=== PATIENT | male | born 1950 | race Caucasian/White ===

== ENCOUNTER 2021-08-16 12:56 | Day surgery (SDC) | payer MEDICARE ==
[~2021-08-16] VITALS: Ht 177.8 cm; Wt 87.0 kg
[2021-08-16] VITALS (10 sets, daily range): BP systolic 94–126; BP diastolic 59–79; PULSE 55–80; TEMP 98.4
[2021-08-16 13:36] LABS: HEMOGLOBIN 12.7 g/dl (13.5-18.0); MEAN CELL VOLUME 92 fl (80.0-100.0); MEAN CORPUSCULAR HEMOGLOBIN 32 pg (27-31); MEAN CORPUSCULAR HGB CONC 34 g/dl (33.0-37.0); MEAN PLATELET VOLUME 10.5 fl (7.4-10.4); PLATELET COUNT 186 K/mm3 (130-400); RED BLOOD COUNT 4.01 M/mm3 (4.20-5.60); REDCELL DISTRIBUTION WIDTH-CV 13.1 % (11.5-14.5)
[2021-08-16 13:49] LABS: INR 1.2 (0.8-3.0); PROTHROMBIN TIME 13.2 SECONDS (9.7-12.8)
[2021-08-16 13:50] LABS: CALCIUM 9.3 mg/dL (8.4-10.2); CREATININE, serum 1.33 mg/dL (0.72-1.25)
[2021-08-16 13:52] LABS: PARTIAL THROMBOPLASTIN TIME 35.9 SECONDS (26.0-37.0)
[2021-08-16] MEDS ORDERED: PLAVIX 75MG TAB75 MG PO (14:15)
[2021-08-16] MEDS ORDERED: ACTOS 15MG TAB15 MG PO (14:15)
[2021-08-16] MEDS ORDERED: ASPIRIN E.C. 8181 MG PO (14:15)
[2021-08-16] MEDS ORDERED: GLUCOPHAGE XR750 MG PO (14:16)
[2021-08-16] MEDS ORDERED: LOTENSIN20 MG PO (14:16)
[2021-08-16] MEDS ORDERED: XULTOPHY 100 UNI3 ML SQ (14:17)
[2021-08-16] MEDS ORDERED: LIPITOR 40MG TA40 MG PO (14:17)
--- NOTE | 2021-08-16 15:09 | NUR ---
See merge for all medication, assessment, intervention, vital sign times. Moderate sedation assessment completed after reviewing patient in express.
--- NOTE | 2021-08-16 17:33 | NUR ---
Pt eating dinner tray. Remains free of complaints. Call light in reach. Report given to TRACE Allen, who will take over cares while pt remains in dept.
--- NOTE | 2021-08-16 20:37 | NUR ---
DISCHARGE EDUCATION GIVEN TO PT, PT VERBALIZED UNDERSTANDING, ARTERIAL SITE DRESSED WITH GAUZE, COBAN, DEFLATED TR BAND AND WRIST BRACE TO PROTECT SITE AND REMIND PT TO BE CAREFUL WITH SITE, PT VERBALIZES UNDERSTANDING. STOCK MANAGER VIA WC TO EXIT.
== END 2021-08-16 20:20 | disposition home or self-care (01) ==
LOC: COL.CAR 12:56
PROVIDERS: Internal Medicine Interventional Cardiology
DX: I25.10 Atherosclerotic heart disease of native coronary artery without angina pectoris (principal); I11.0 Hypertensive heart disease with heart failure; I50.30 Unspecified diastolic (congestive) heart failure; I42.9 Cardiomyopathy, unspecified; I34.0 Nonrheumatic mitral (valve) insufficiency; I31.3 Pericardial effusion (noninflammatory); R94.39 Abnormal result of other cardiovascular function study; Z82.49 Family history of ischemic heart disease and other diseases of the circulatory system; Z79.899 Other long term (current) drug therapy
CPT/HCPCS: C1769; J2250; J3010

== ENCOUNTER → 2021-10-17 | Outpatient (RCR) | payer MEDICARE ==
[~2021-10-17] MED LIST: ACTOS 15MG TAB15 MG PO; ASPIRIN E.C. 8181 MG PO; GLUCOPHAGE XR750 MG PO; LIPITOR 40MG TA40 MG PO; LOTENSIN20 MG PO; PLAVIX 75MG TAB75 MG PO; XULTOPHY 100 UNI3 ML SQ
== END | disposition still patient (30) ==
LOC: COL.CR
DX: Z48.812 Encounter for surgical aftercare following surgery on the circulatory system (principal); Z95.1 Presence of aortocoronary bypass graft